=== PATIENT | female | born 1955 | race African-American/Black ===

== ENCOUNTER 2019-08-15 07:12 | Outpatient (CLI) | payer MEDICAID, OTHER ==
[2019-08-15 12:07] LABS: BASOPHILS % (AUTO) 0.5 %; EOSINOPHILS # (AUTO) 0.1 10^3/uL (0.0-0.7); EOSINOPHILS % (AUTO) 0.7 %; HGB - HEMOGLOBIN 13.7 g/dL (12.0-16.0); LYMPHOCYTES # (AUTO) 1.8 10^3/uL (1.5-3.5); LYMPHOCYTES % (AUTO) 24.1 %; MEAN CORPUSCULAR HEMOGLOBIN 28.7 pg (27.0-31.0); MEAN CORPUSCULAR HGB CONC 34.2 g/dL (32.0-36.0); MEAN CORPUSCULAR VOLUME 84.1 fL (81.0-99.0); MEAN PLATELET VOLUME 13.7 fL (7.9-10.8); MONOCYTES # (AUTO) 0.5 10^3/uL (0.0-1.0); MONOCYTES % (AUTO) 6.3 %; PLT - PLATELET COUNT 209 10^3/uL (130-450); RED BLOOD COUNT 4.77 10^6/uL (4.20-5.40); RED CELL DISTRIBUTION WIDTH 14.4 % (12.0-15.0); WHITE BLOOD COUNT 7.3 x10^3/uL (4.8-10.8)
[2019-08-15 12:33] LABS: ALBUMIN 4.1 g/dL (3.2-5.5); ALBUMIN/GLOBULIN RATIO 1.1 (1.0-2.2); ALKALINE PHOSPHATASE 91 IU/L (42-121); ALT ALANINE AMINOTRANSFERASE 25 IU/L (10-60); AST ASPARTATE AMINOTRANSFERASE 18 IU/L (10-42); BILIRUBIN,TOTAL 0.6 mg/dL (0.2-1.0); BUN - BLOOD UREA NITROGEN 14 mg/dL (6-20); CARBON DIOXIDE - CO2 26 mmol/L (21-32); CHLORIDE 94 mmol/L (101-111); CHOL/HDL RATIO 6.6 (<4.4); CHOLESTEROL 262 mg/dL; HDL CHOLESTEROL 40 mg/dL; LDL CHOLESTEROL,CALCULATED 147 mg/dL; LDL/HDL RATIO 3.7 (<4.4); SODIUM 130 mmol/L (135-145); TOTAL PROTEIN 7.8 g/dL (6.7-8.2); VLDL CHOLESTEROL 75 mg/dL
[2019-08-15 12:50] LABS: GLUCOSE 526 mg/dL (70-100)
== END 2019-08-15 07:13 | disposition home or self-care (01) ==
LOC: LAB.WCP 07:12
PROVIDERS: ATTEND Physician Assistant Medical
DX: Z00.00 Encounter for general adult medical examination without abnormal findings (principal)
CPT/HCPCS: 36415; 80053; 80061; 83721; 84443; 85025

== ENCOUNTER 2019-08-15 17:38 | Emergency (ER) | payer MEDICAID, OTHER ==
--- NOTE | 2019-08-15 17:55 | ED Physician Documentation ---
PD HPI SYNCOPE - Stated complaint Stated Complaint: ABNORMAL LABS - Chief complaint Chief Complaint: General - History obtained from History obtained from: Patient - History of Present Illness Timing - onset: How many weeks ago (patient feeling lightheaded, weak, blurred vision, tired, thirsty for few weeks. Seen by PCP yesterday with labs drawn this morning. Found to have blood sugar of 525. Referred to ER for further evaluation. Denies nausea nor vomiting.) Preceding symptoms: Light headed, Generalized weakness. No: Chest pain, Abdominal pain, Nausea / vomiting Associated symptoms: Vision changes (blurred). No: Headache Contributing factors: No: Recent med change, Decreased PO intake Injury occurred: No: Fell Similar symptoms before: Has not had sx before Recently seen: Clinic (yesterday, with labs drawn this morning.) Review of Systems Constitutional: reports: Myalgias, Fatigue. denies: Fever, Chills, Weight Loss Nose: denies: Rhinorrhea / runny nose, Congestion Throat: denies: Sore throat Cardiac: denies: Chest pain / pressure, Palpitations, Pedal edema Respiratory: denies: Cough GI: reports: Nausea (at times). denies: Abdominal Pain, Vomiting, Diarrhea : reports: Frequency. denies: Dysuria Neurologic: reports: Generalized weakness. denies: Focal weakness, Numbness, Near syncope Psychiatric: denies: Anxiety Endocrine: reports: Polydypsia, Polyuria. 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 - Present Medications Home Medications: Ambulatory Orders Medication Instructions Recorded Confirmed Blood Sugar Diagnostic [Glucometer 1 each MC BID #100 strip 08/15/19 Strips] Blood-Glucose Meter [Glucometer] 1 each BID #1 each 08/15/19 Metformin HCl 850 mg PO BID #60 tablet 08/15/19 - Allergies Allergies/Adverse Reactions: Allergies Allergy/AdvReac Type Severity Reaction Status Date / Time amoxicillin Allergy Unknown Verified 08/15/19 17:47 - Social History Does the pt smoke?: Yes Smoking Status: Current every day smoker Does the pt drink ETOH?: Yes Does the pt have substance abuse?: No - POLST Patient has POLST: No PD ED PE NORMAL - Vitals Vital signs reviewed: Yes - General General: Alert and oriented X 3, No acute distress, Well developed/nourished - HEENT HEENT: Ears normal, Pharynx benign. No: Moist mucous membranes - Neck Neck: Supple, no meningeal sign, No adenopathy - Cardiac Cardiac: RRR, No murmur - Respiratory Respiratory: Clear bilaterally - Abdomen Abdomen: Normal bowel sounds, Soft, Non tender - Derm Derm: Normal color, Warm and dry - Extremities Extremities: No tenderness to palpate, Normal ROM s pain, No edema, No calf tenderness / cord - Neuro Neuro: Alert and oriented X 3, No motor deficit, Normal speech Results - Vitals Vitals: Vital Signs - 24 hr 08/15/19 08/15/19 08/15/19 17:47 18:34 20:00 Temperature 36.8 C Heart Rate 85 71 117 H Respiratory 16 16 18 Rate Blood Pressure 129/55 L 140/59 H 124/84 H O2 Saturation 98 96 100 Oxygen O2 Source Room air - Labs Labs: Laboratory Tests 08/15/19 08/15/19 08/15/19 18:28 18:28 18:28 VBG pH 7.395 VBG pCO2 39.6 L VBG pO2 56.9 H VBG HCO3 23.7 VBG Total CO2 24.9 VBG O2 Saturation 90.7 H VBG Base Excess -1.0 Sodium 130 L Potassium 4.1 Chloride 96 L Carbon Dioxide 23 Anion Gap 11.0 BUN 15 Creatinine 1.0 Estimated GFR (MDRD) 68 L Glucose 501 H* POC Whole Bld Glucose Glycated Hemoglobin 12.3 H Estim Average Glucose 306 H Calcium 9.7 Magnesium 2.0 Total Bilirubin 0.7 AST 17 ALT 23 Alkaline Phosphatase 89 Total Protein 7.5 Albumin 3.7 Globulin 3.8 Albumin/Globulin Ratio 1.0 Lipase 51 Serum Ketones SMALL H 08/15/19 19:19 VBG pH VBG pCO2 VBG pO2 VBG HCO3 VBG Total CO2 VBG O2 Saturation VBG Base Excess Sodium Potassium Chloride Carbon Dioxide Anion Gap BUN Creatinine Estimated GFR (MDRD) Glucose POC Whole Bld Glucose 398 H Glycated Hemoglobin Estim Average Glucose Calcium Magnesium Total Bilirubin AST ALT Alkaline Phosphatase Total Protein Albumin Globulin Albumin/Globulin Ratio Lipase Serum Ketones PD MEDICAL DECISION MAKING - ED course Complexity details: considered differential (given IV fluids and insulin, with blood sugar down into 300s. She has likely been in 200-300s range awhile, given her A1C level. Small ketones on serum but not acidotic. She is not vomiting and appears well otherwise. Discussed with Hospitalist, as not likely meets admission criteria, but checked.), d/w patient Departure - Departure Disposition: 01 Home, Self Care Clinical Impression: Diabetes mellitus, new onset, Hyperglycemia Condition: Stable Record reviewed to determine appropriate education?: Yes Instructions: ED Diabetes General Info, ED Hyperglycemia New Susp Diabetes Follow-Up: KVNG SINGH, MSN, [employer] [Primary Care Provider] - Prescriptions: Blood-Glucose Meter [Glucometer] 1 each MC BID #1 each Blood Sugar Diagnostic [Glucometer Strips] 1 each MC BID #100 strip Metformin HCl 850 mg PO BID #60 tablet Comments: Start the metformin once daily for 3 days or so and then increase to twice daily. Low sugar diet and refer to the handout. I wrote a prescription for glucometer and test strips as well and you want to pick that up so you can bring it to your primary care for education about its use. Follow-up with your primary care in the next couple of days for further treatment and the diabetic education process. They may or may not want to start a long-acting daily insulin at a very low dose as well. Discussed this with your primary care. Discharge Date/Time: 08/15/19 20:15
[2019-08-15] MEDS ORDERED: SODIUM CHLORIDE 0.9% 1,000 ML IV STA ×2 (18:25→19:14)
[2019-08-15] MEDS ORDERED: INSULIN REGULAR HUMAN 100 UNIT/1 ML 10 ML MDV IVP STA (18:26)
[2019-08-15 18:44] LABS: VBG PCO2 39.6 mmHg (41-51); VBG PH 7.395 (7.31-7.41); VBG PO2 56.9 mmHg (25-47); VBG TOTAL CO2 24.9 mmol/L (24-29)
[2019-08-15 18:52] LABS: KETONES, SERUM (ACETEST) SMALL (NEGATIVE)
[2019-08-15 18:57] LABS: HB2 TOTAL 13.7 g/dL; HEMOGLOBIN A1C 1.52 g/dL; HEMOGLOBIN A1C % 12.3 % (4.6-6.2)
[2019-08-15 18:58] LABS: ALBUMIN 3.7 g/dL (3.2-5.5); ALKALINE PHOSPHATASE 89 IU/L (42-121); ALT ALANINE AMINOTRANSFERASE 23 IU/L (10-60); AST ASPARTATE AMINOTRANSFERASE 17 IU/L (10-42); BILIRUBIN,TOTAL 0.7 mg/dL (0.2-1.0); BUN - BLOOD UREA NITROGEN 15 mg/dL (6-20); CALCIUM 9.7 mg/dL (8.5-10.3); CARBON DIOXIDE - CO2 23 mmol/L (21-32); CHLORIDE 96 mmol/L (101-111); LIPASE 51 U/L (22-51); SODIUM 130 mmol/L (135-145); TOTAL PROTEIN 7.5 g/dL (6.7-8.2)
[2019-08-15 19:00] LABS: GLUCOSE 501 mg/dL (70-100)
[2019-08-15] MEDS ORDERED: metFORMIN 500 MG TABLET PO STA (19:29)
[2019-08-15 20:13] VITALS: BP 124/84
== END 2019-08-15 20:15 | disposition home or self-care (01) ==
LOC: ED 17:38
DX: E11.65 Type 2 diabetes mellitus with hyperglycemia (principal); F17.200 Nicotine dependence, unspecified, uncomplicated
CPT/HCPCS: 36415; 80053; 82009; 82803; 83036; 83690; 83735; 96360; 96361; 99283; 99284; A9270; J1815

== ENCOUNTER 2019-09-19 13:54 | Outpatient (CLI) | payer MEDICAID ==
--- NOTE | 2019-09-19 18:17 | CT Report ---
PROCEDURE: Low Dose Lung Cancer Screen INDICATIONS: NICOTINE DEPENDENCE TECHNIQUE: Noncontrast low-dose 5 mm thick sections acquired from the pulmonary apices to the posterior costophr enic angles. 7 mm thick coronal and sagittal MIP reformats were then acquired. For radiation dose r eduction, the following was used: automated exposure control, adjustment of mA and/or kV according t o patient size. COMPARISON: None. FINDINGS: Image quality: Excellent. Lungs and pleura: 3 mm nodule noted in the right upper lobe (series 4, image 86) series. 4 mm right middle lobe nodule (series 4, image 131). 3 mm right lower lobe nodule (series 4, image 142). 3 mm ri ght middle lobe nodule (series 4, image 146). 7 mm subpleural right lower lobe nodule (series 4, imag e 153 Mediastinum: Heart size is normal. No pericardial effusion. No mediastinal adenopathy by size crit eria. Thoracic aorta and central pulmonary arteries are normal in size. Esophagus is normal in j[place]e [place]. No hiatal hernia. Bones and chest wall: No suspicious bony lesions. No vertebral body compression fractures. No axil yvon or supraclavicular adenopathy by size criteria. The thyroid is normal in size. Abdomen: Visualized upper abdomen solid organs and bowel loops appear normal in the absence of contr ast. IMPRESSION: Multiple nodules in the right lung ranging in size from 3-7 mm. Nodules are probably benign (Lung-RAD S 3). Recommend follow-up CT scan in 6 months. Reviewed by: Patricia Chino MD, PhD on 09/19/2019 6:15 PM PDT Approved by: Patricia Chino MD, PhD on 09/19/2019 6:15 PM PDT Station ID: [id number]
== END 2019-09-19 13:55 | disposition home or self-care (01) ==
LOC: DI 13:54
PROVIDERS: ATTEND Nurse Practitioner Family
DX: Z12.2 Encounter for screening for malignant neoplasm of respiratory organs (principal); F17.210 Nicotine dependence, cigarettes, uncomplicated; R91.8 Other nonspecific abnormal finding of lung field; M85.89 Other specified disorders of bone density and structure, multiple sites; Z78.0 Asymptomatic menopausal state
CPT/HCPCS: 77080; G0297

== ENCOUNTER 2019-11-15 09:12 | Outpatient (CLI) | payer MEDICAID ==
[2019-11-15 12:11] LABS: ALBUMIN/GLOBULIN RATIO 1.1 (1.0-2.2); ALKALINE PHOSPHATASE 52 IU/L (42-121); ALT ALANINE AMINOTRANSFERASE 16 IU/L (10-60); AST ASPARTATE AMINOTRANSFERASE 17 IU/L (10-42); BILIRUBIN,TOTAL 0.4 mg/dL (0.2-1.0); BUN - BLOOD UREA NITROGEN 9 mg/dL (6-20); CARBON DIOXIDE - CO2 30 mmol/L (21-32); CHLORIDE 105 mmol/L (101-111); CHOL/HDL RATIO 4.9 (<4.4); CHOLESTEROL 226 mg/dL; CREATININE 0.8 mg/dL (0.4-1.0); GLUCOSE 98 mg/dL (70-100); HDL CHOLESTEROL 46 mg/dL; LDL CHOLESTEROL,CALCULATED 163 mg/dL; LDL/HDL RATIO 3.5 (<4.4); SODIUM 141 mmol/L (135-145); TOTAL PROTEIN 7.7 g/dL (6.7-8.2); VLDL CHOLESTEROL 17 mg/dL
[2019-11-15 12:42] LABS: HEMOGLOBIN A1c% 6.5 % (4.27-6.07)
== END 2019-11-15 23:59 | disposition home or self-care (01) ==
LOC: LAB.WCP 09:12
PROVIDERS: ATTEND Nurse Practitioner Family
DX: E11.9 Type 2 diabetes mellitus without complications (principal); E78.5 Hyperlipidemia, unspecified
CPT/HCPCS: 36415; 80053; 80061; 83036; 83721

== ENCOUNTER 2019-11-16 06:27 | Day surgery (SDC) | payer MEDICAID ==
[2019-11-16] MEDS ORDERED: LACTATED RINGERS 1,000 ML IV ONE (06:58)
[2019-11-16] MEDS ORDERED: MIDAZOLAM 2 MG/2 ML VIAL IVP ONE (08:11)
[2019-11-16] MEDS ORDERED: fentaNYL 250 MCG/5 ML VIAL IVP ONE (08:11)
[2019-11-16] MEDS ORDERED: LACTATED RINGERS 700 ML IV ONE (08:59)
[2019-11-16 09:25] VITALS: BP 126/47
== END 2019-11-16 06:28 | disposition home or self-care (01) ==
LOC: SDS 06:27
PROVIDERS: ATTEND Surgery
PROC: 0DBH8ZX Excision of Cecum, Via Natural or Artificial Opening Endoscopic, Diagnostic (ICD-10-PCS; principal; 2019-11-16 07:30)
DX: Z12.11 Encounter for screening for malignant neoplasm of colon (principal); K63.89 Other specified diseases of intestine; K64.8 Other hemorrhoids; K64.4 Residual hemorrhoidal skin tags; E11.9 Type 2 diabetes mellitus without complications; F17.210 Nicotine dependence, cigarettes, uncomplicated; Z79.84 Long term (current) use of oral hypoglycemic drugs; J44.9 Chronic obstructive pulmonary disease, unspecified
CPT/HCPCS: 45380; J3010; J7120

== ENCOUNTER 2019-12-22 13:24 | Outpatient (CLI) | payer MEDICAID ==
[2019-12-22] MEDS ORDERED: BUFFERED LIDOCAINE 10 ML SYRINGE ONE (14:04)
[2019-12-22] MEDS ORDERED: BUFFERED LIDOCAINE 10 ML SYRINGE IU ONE (15:34)
--- NOTE | 2019-12-23 07:12 | Ultrasound Report ---
PROCEDURE: FNA Bx w/US Gdn Ea Addl INDICATIONS: NODULE #4 LEFT THYROID TECHNIQUE: The indications, alternatives, benefits, risks, and complications of the procedure were explained to the patient. Written informed consent was obtained and placed in the chart. The area of interest wa s examined sonographically and a site was chosen for ultrasound guided percutaneous sampling. The sk in was prepared and draped in the usual fashion, and anesthetized with 1% lidocaine infiltrated from the skin down to the lesion. Multiple passes were then performed, with [facility]. A bandage was applied to the area of access at completion of t he study. COMPARISON: Prior thyroid ultrasound 11/22/2019. FINDINGS: During scanning over the thyroid gland today definite nodules at the lower third of each t hyroid lobe were not identified. These would be the areas of reported prior suspected thyroid nodules 3. #5 from the prior report. The thyroid nodule #4 couldn't be located and was biopsied. Location(s) of lesion(s) sampled: #4, superior lateral aspect of the left thyroid lobe. [place]: 25 gauge hypodermic needles. Number of passes: 5. Each fine-needle aspiration was placed in cytology fluid for transport to the [facility] for cytologic analysis. Medications: 1% lidocaine for local anaesthesia. Complications: None. IMPRESSION: Successful ultrasound-guided left upper lateral thyroid nodule fine needle aspiration, with cytology results pending. As discussed above definite nodules could not be located within the lower third of the right and left thyroid lobe and therefore no cytology aspiration was performed in those 2 areas. The thyroid gland is mildly lobulated along its contours, but discrete thyroid nodules other than at the upper outer le ft thyroid lobe could not be definitively seen. Reviewed by: Alvarado Blackwell MD on 12/22/2019 5:04 PM PDT Approved by: Alvarado Blackwell MD on 12/22/2019 5:04 PM PDT Station ID: [id number]
== END 2019-12-22 13:25 | disposition home or self-care (01) ==
LOC: DI 13:24
PROVIDERS: ATTEND Surgery
DX: E04.2 Nontoxic multinodular goiter (principal)
CPT/HCPCS: 10006

== ENCOUNTER 2020-02-27 11:02 | Outpatient (CLI) | payer MEDICAID ==
[2020-02-27 19:32] LABS: ALBUMIN 3.9 g/dL (3.2-5.5); ALBUMIN/GLOBULIN RATIO 1.1 (1.0-2.2); BILIRUBIN,TOTAL 0.2 mg/dL (0.2-1.0); CALCIUM 9.6 mg/dL (8.5-10.3); CREATININE 0.7 mg/dL (0.4-1.0); TOTAL PROTEIN 7.5 g/dL (6.7-8.2)
== END 2020-02-27 23:59 | disposition home or self-care (01) ==
LOC: LAB.WCP 11:02
PROVIDERS: ATTEND Nurse Practitioner Family
DX: E11.9 Type 2 diabetes mellitus without complications (principal)
CPT/HCPCS: 36415; 80053; 83036

== ENCOUNTER 2020-07-16 12:58 | Outpatient (CLI) | payer MEDICAID ==
--- NOTE | 2020-07-18 07:04 | Mammography Report ---
BILATERAL DIGITAL SCREENING MAMMOGRAM 3D/2D: 07/16/2020 CLINICAL: Routine screening. Comparison: 01/17/2013 There are scattered fibroglandular elements in both breasts. No significant masses, calcifications, or other findings are seen in either breast. IMPRESSION: NEGATIVE There is no mammographic evidence of malignancy. A 1 year screening mammogram is recommended. This exam was interpreted at Station ID: [id number]. NOTE: For mammograms, a report in lay terms will be sent to the patient. Approximately 15% of breast malignancies will not be visualized mammographically. In the management of a palpable breast mass, a negative mammogram must not discourage biopsy of a clinically suspicious lesion. Electronically Signed By: Bryson Fuentes M.D. aty/:07/16/2020 14:26:25 ACR BI-RADS Category 1: Negative 3341F PARENCHYMAL PATTERN: (A) - The breast(s) demonstrate(s) scattered fibroglandular densities. BI-RADS CATEGORY: (1) - 1 RECOMMENDATION: (ANNUAL) - Recommend routine annual screening mammography. [id number] 1 year screening LATERALITY: (B)
== END 2020-07-16 12:59 | disposition home or self-care (01) ==
LOC: DI 12:58
DX: Z12.31 Encounter for screening mammogram for malignant neoplasm of breast (principal)

== ENCOUNTER 2020-08-16 08:00 | Outpatient (CLI) | payer MEDICAID ==
[2020-08-16 18:07] LABS: BASOPHILS # (AUTO) 0.1 10^3/uL (0.0-0.1); BASOPHILS % (AUTO) 0.7 %; EOSINOPHILS # (AUTO) 0.1 10^3/uL (0.0-0.7); EOSINOPHILS % (AUTO) 1.8 %; HCT - HEMATOCRIT 32.7 % (37.0-47.0); HGB - HEMOGLOBIN 10.3 g/dL (12.0-16.0); LYMPHOCYTES # (AUTO) 1.9 10^3/uL (1.5-3.5); LYMPHOCYTES % (AUTO) 25.4 %; MEAN CORPUSCULAR HEMOGLOBIN 25.5 pg (27.0-31.0); MEAN CORPUSCULAR HGB CONC 31.5 g/dL (32.0-36.0); MEAN CORPUSCULAR VOLUME 80.9 fL (81.0-99.0); MEAN PLATELET VOLUME 12.3 fL (7.9-10.8); MONOCYTES # (AUTO) 0.5 10^3/uL (0.0-1.0); MONOCYTES % (AUTO) 7.4 %; NEUTROPHILS # (AUTO) 4.7 10^3/uL (1.5-6.6); NEUTROPHILS % (AUTO) 64.4 %; PLT - PLATELET COUNT 299 10^3/uL (130-450); RED BLOOD COUNT 4.04 10^6/uL (4.20-5.40); RED CELL DISTRIBUTION WIDTH 16.8 % (12.0-15.0); WHITE BLOOD COUNT 7.3 x10^3/uL (4.8-10.8)
[2020-08-16 18:39] LABS: ALBUMIN 3.9 g/dL (3.2-5.5); ALBUMIN/GLOBULIN RATIO 1.1 (1.0-2.2); ALKALINE PHOSPHATASE 52 IU/L (42-121); ALT ALANINE AMINOTRANSFERASE 14 IU/L (10-60); AST ASPARTATE AMINOTRANSFERASE 17 IU/L (10-42); BILIRUBIN,TOTAL 0.2 mg/dL (0.2-1.0); BUN - BLOOD UREA NITROGEN 10 mg/dL (6-20); CALCIUM 10.2 mg/dL (8.5-10.3); CARBON DIOXIDE - CO2 25 mmol/L (21-32); CHLORIDE 107 mmol/L (101-111); CHOL/HDL RATIO 5.7 (<4.4); CHOLESTEROL 243 mg/dL; CREATININE 0.8 mg/dL (0.4-1.0); GFR - MDRD 88 (>89); GLUCOSE 100 mg/dL (70-100); HDL CHOLESTEROL 43 mg/dL; LDL CHOLESTEROL,CALCULATED 164 mg/dL; LDL/HDL RATIO 3.8 (<4.4); POTASSIUM 4.1 mmol/L (3.5-5.0); SODIUM 140 mmol/L (135-145); TOTAL PROTEIN 7.4 g/dL (6.7-8.2); TRIGLYCERIDES 180 mg/dL; VLDL CHOLESTEROL 36 mg/dL
[2020-08-16 18:44] LABS: THYROID STIMULATING HORMONE 1.73 uIU/mL (0.34-5.60)
[2020-08-16 20:32] LABS: ESTIMATED AVERAGE GLUCOSE 126 mg/dL (70-100)
== END 2020-08-16 23:59 | disposition home or self-care (01) ==
LOC: LAB.WCP 08:00
PROVIDERS: ATTEND Nurse Practitioner Family
DX: E04.1 Nontoxic single thyroid nodule (principal); E11.9 Type 2 diabetes mellitus without complications; E78.5 Hyperlipidemia, unspecified
CPT/HCPCS: 36415; 80053; 80061; 83036; 83721; 84443; 85025

== ENCOUNTER 2020-09-24 08:00 | Outpatient (CLI) | payer MEDICAID ==
[2020-09-24 13:56] LABS: % IRON SATURATION 5 % (20-50); IRON 27 ug/dL (28-170); TOTAL IRON BINDING CAPACITY 505 ug/dL (250-450); TRANSFERRIN 361 mg/dL (192-382)
== END 2020-09-24 23:59 | disposition home or self-care (01) ==
LOC: LAB.WCP 08:00
PROVIDERS: ATTEND Family Medicine
DX: D50.9 Iron deficiency anemia, unspecified (principal)
CPT/HCPCS: 36415; 82728; 83540; 84466

== ENCOUNTER 2020-10-03 15:13 | Outpatient (CLI) | payer MEDICAID ==
--- NOTE | 2020-10-03 17:12 | CT Report ---
PROCEDURE: CHEST WO INDICATIONS: LUNG NODULE TECHNIQUE: Noncontrast images were acquired from the pulmonary apices to the posterior costophrenic angles. Mul tiplanar MIP reformats were then acquired. For radiation dose reduction, the following was used: au tomated exposure control, adjustment of mA and/or kV according to patient size. COMPARISON: Low-dose chest CT, 09/19/2019 FINDINGS: Image quality: Excellent. Lungs and pleura: Several pulmonary nodules are again seen: Series 4 image 90, right upper lobe, 3 mm, stable Series 4 image 137, anterior right middle lobe superiorly, 4 mm, stable Series 4 image 145, right lower lobe 4 mm, stable Series 4 image 154, right lower lobe subpleural posteriorly, 7 mm, stable No acute air space opacities. No pleural effusions or pneumothorax. Central and peripheral airways are patent and normal in caliber. Mediastinum: Heart size is normal. No pericardial effusion. No mediastinal adenopathy by size crit eria. Thoracic aorta and central pulmonary arteries are normal in size. Esophagus is normal in [place]e [place]. No hiatal hernia. Bones and chest wall: No suspicious bony lesions. Age-appropriate degenerative changes are seen. N o vertebral body compression fractures. No axillary or supraclavicular adenopathy by size criteria. The thyroid demonstrates generalized prominence, particularly involving the thyroid isthmus, which i s thickened to 2.3 cm. Abdomen: Visualized upper abdominal solid organs and bowel loops appear normal in the absence of con trast. IMPRESSION: Stable bilateral pulmonary nodules are seen. Recommend annual low-dose CT chest screening examinations, as long as the patient meets the published screening criteria. Prominent thyroid, particularly involving the thyroid isthmus. No discrete nodules are seen. If clini luciana appropriate, please consider a follow-up thyroid ultrasound for further evaluation. Reviewed by: Rafita Jose MD on 10/03/2020 4:11 PM DENISE Approved by: Rafita Jose MD on 10/03/2020 4:11 PM DENISE Station ID: [id number]
== END 2020-10-03 15:14 | disposition home or self-care (01) ==
LOC: DI 15:13
PROVIDERS: ATTEND Family Medicine
DX: R91.8 Other nonspecific abnormal finding of lung field (principal)

== ENCOUNTER 2020-10-12 12:41 | Outpatient (CLI) | payer MEDICAID ==
--- NOTE | 2020-10-12 17:42 | Ultrasound Report ---
PROCEDURE: Head or Neck Soft Tissue INDICATIONS: MULTIPLE THYROID NODULES TECHNIQUE: Real-time scanning was performed of the thyroid gland, with image documentation. COMPARISON: 11/22/2019 FINDINGS: Right: Thyroid lobe measures 6.8 x 2.3 x 2.3 cm, and is homogeneous in echotexture. Left: Thyroid lobe measures 5.9 x 1.8 x 2.4 cm, and is homogenous in echotexture. Isthmus: 8 mm thick. Nodule number: 1 Location: Right inferior thyroid Size: 1.6 x 1.4 x 1.3 cm, prior 2.2 x 1.2 x 1.8 cm. Composition: Solid Echogenicity: Isoechoic Shape: wider than tall. Margins: Smooth Echogenic foci: None Total points: 3 ACR TI-RADS category: 3 Nodule number: 2 Location: Left superior thyroid Size: 1.6 x 0.6 x 1 cm, prior 1.5 x 0.8 x 1 cm. Composition: Spongiform Echogenicity: Hypoechoic Shape: wider than tall. Margins: Smooth Echogenic foci: None Total points: 3 ACR TI-RADS category: 3 The previously seen nodule at the inferior pole of the left thyroid is not well seen on the current s tudy. IMPRESSION: Bilateral thyroid nodules are seen. By published criteria, no specific imaging follow-up is recommended. ACR TI-RADS definitions and recommendations: TI-RADS 1 (benign): 0 points. FNA not needed. TI-RADS 2 (not suspicious): 2 points. FNA not needed. TI-RADS 3 (mildly suspicious): 3 points. ? FNA if 2.5 cm or larger, follow up if 1.5 cm or larger (at 1, 3, and 5 years). TI-RADS 4 (moderately suspicious): 4-6 points. ? FNA if 1.5 cm or larger, follow up if 1 cm or larger (at 1, 2, 3, and 5 years). TI-RADS 5 (highly suspicious): 7 points or more. ? FNA if 1 cm or larger, follow up if 0.5 cm or larger (every year for 5 years). Reviewed by: Rafita Jose MD on 10/12/2020 4:40 PM DENISE Approved by: Rafita Jose MD on 10/12/2020 4:40 PM AKHARJIT Station ID: [id number]
== END 2020-10-12 12:42 | disposition home or self-care (01) ==
LOC: DI 12:41
PROVIDERS: ATTEND Family Medicine
DX: E04.2 Nontoxic multinodular goiter (principal)

== ENCOUNTER 2020-11-28 10:56 | Outpatient (CLI) | payer MEDICAID ==
[2020-11-28 18:03] LABS: BASOPHILS # (AUTO) 0.1 10^3/uL (0.0-0.1); BASOPHILS % (AUTO) 0.8 %; EOSINOPHILS # (AUTO) 0.1 10^3/uL (0.0-0.7); EOSINOPHILS % (AUTO) 1.9 %; HCT - HEMATOCRIT 37.7 % (37.0-47.0); HGB - HEMOGLOBIN 11.7 g/dL (12.0-16.0); LYMPHOCYTES # (AUTO) 1.9 10^3/uL (1.5-3.5); LYMPHOCYTES % (AUTO) 29.3 %; MEAN CORPUSCULAR HEMOGLOBIN 25.8 pg (27.0-31.0); MEAN CORPUSCULAR VOLUME 83.2 fL (81.0-99.0); MEAN PLATELET VOLUME 12.2 fL (7.9-10.8); MONOCYTES # (AUTO) 0.5 10^3/uL (0.0-1.0); MONOCYTES % (AUTO) 7.5 %; NEUTROPHILS # (AUTO) 3.8 10^3/uL (1.5-6.6); PLT - PLATELET COUNT 258 10^3/uL (130-450); RED BLOOD COUNT 4.53 10^6/uL (4.20-5.40); RED CELL DISTRIBUTION WIDTH 21.7 % (12.0-15.0); WHITE BLOOD COUNT 6.4 x10^3/uL (4.8-10.8)
[2020-11-28 18:16] LABS: MICROALBUM/CREATININE RATIO,UR 55.4 ug/mg (<30.0); MICROALBUMIN,URINE 3.1 mg/dL (0-300.0)
[2020-11-28 18:30] LABS: % IRON SATURATION 10 % (20-50); IRON 46 ug/dL (28-170); TOTAL IRON BINDING CAPACITY 452 ug/dL (250-450); TRANSFERRIN 323 mg/dL (192-382)
[2020-11-28 19:03] LABS: SLIDE REVIEW? Indicated
[2020-11-28 19:05] LABS: PLATELET MORPHOLOGY NORMAL APPEARANCE (NORMAL)
[2020-11-28 20:26] LABS: ESTIMATED AVERAGE GLUCOSE 114 mg/dL (70-100); HEMOGLOBIN A1c% 5.6 % (4.27-6.07)
== END 2020-11-28 23:59 | disposition home or self-care (01) ==
LOC: LAB.WCP 10:56
PROVIDERS: ATTEND Nurse Practitioner
DX: E11.9 Type 2 diabetes mellitus without complications (principal); D50.9 Iron deficiency anemia, unspecified
CPT/HCPCS: 36415; 82043; 82570; 82728; 83036; 83540; 84466; 85025

== ENCOUNTER 2021-04-29 07:17 | Day surgery (SDC) | payer MEDICAID ==
[2021-04-29] MEDS ORDERED: LACTATED RINGERS 1,000 ML IV ONE (07:21)
--- NOTE | 2021-04-29 08:27 | ANESTHESIA ---
Pre-Anesthesia VS, & Labs - Diagnosis anemia - Procedure EGD, Colonoscopy Vital Signs: Temp Pulse Resp BP Pulse Ox 36.4 C L 62 16 132/65 H 98 04/29/21 07:25 04/29/21 07:25 04/29/21 07:25 04/29/21 07:25 04/29/21 07:25 Height: 5 ft 2 in Weight (kg): 64 kg Body Mass Index: 25.8 BMI Classification: Overweight - NPO >8 hours - Is Patient ?: No - Lab Results Current Lab Results: Laboratory Tests 04/29/21 07:48: POC Whole Bld Glucose 114 H Home Medications and Allergies Home Medications: Ambulatory Orders Metformin HCl 850 mg PO PRN PRN 04/21/21 Atorvastatin Calcium 10 mg PO DAILY 11/15/19 Glipizide [Glipizide ER] 5 mg PO PRN PRN 11/15/19 Albuterol Sulf [Ventolin Hfa Inhaler] 2 puffs INH PRN PRN 11/16/19 Metformin HCl 850 mg PO PRN PRN 04/21/21 Allergies/Adverse Reactions: Allergies Allergy/AdvReac Type Severity Reaction Status Date / Time amoxicillin Allergy Unknown Verified 08/15/19 17:47 Anes History & Medical History - Anesthetic History Anesthesia Complications: reports: No previous complications - Medical History Cardiovascular: reports: High cholesterol, Murmur (2/6 murmur) Pulmonary: reports: COPD Gastrointestinal: reports: None Urinary: reports: None Neuro: reports: None Musculoskeletal: reports: Osteoarthritis, Chronic back pain Endocrine/Autoimmune: reports: Type 2 diabetes Blood Disorders: reports: None Skin: reports: None Smoking Status: Current every day smoker History of Cancer?: No - Surgical History General: reports: Colonoscopy Gynecologic: reports: Hysterectomy Plan Anesthesia Type: Total IV Consent for Procedure(s) Verified and Reviewed: Yes Code Status: Attempt Resuscitation ASA classification: 2-Mild systemic disease Is this case an emergency?: No
[2021-04-29] MEDS ORDERED: PROPOFOL 500 MG/50 ML 500 MG/50 ML VIAL ONE (09:08)
[2021-04-29] MEDS ORDERED: LIDOCAINE-MPF 2% 5 ML VIAL ONE (09:18)
[2021-04-29] MEDS ORDERED: LACTATED RINGERS 200 ML IV ONE (09:55)
--- NOTE | 2021-04-29 11:07 | ANESTHESIA POST OP EVALUATION ---
Anesthesia Post Eval - Post Anesthesia Eval Vitals: Last Vital Signs Temp 36.4 C L 04/29/21 10:09 Pulse 54 L 04/29/21 10:09 Resp 16 04/29/21 10:09 BP 130/50 L 04/29/21 10:09 Pulse Ox 100 04/29/21 10:09 CV Function Including HR & BP: Stable Pain Control: Satisfactory Nausea & Vomiting: Negative Mental Status: Baseline Respiratory Status: Airway Patent Hydration Status: Satisfactory Anesthesia Complications: None
[2021-04-29 11:09] VITALS: BP 133/62
== END 2021-04-29 07:18 | disposition home or self-care (01) ==
LOC: SDS 07:17
PROVIDERS: ATTEND Surgery
PROC: 0DB58ZX Excision of Esophagus, Via Natural or Artificial Opening Endoscopic, Diagnostic (ICD-10-PCS; 2021-04-29)
PROC: 0DB48ZX Excision of Esophagogastric Junction, Via Natural or Artificial Opening Endoscopic, Diagnostic (ICD-10-PCS; 2021-04-29)
PROC: 0DBK8ZZ Excision of Ascending Colon, Via Natural or Artificial Opening Endoscopic (ICD-10-PCS; 2021-04-29)
PROC: 0DB98ZX Excision of Duodenum, Via Natural or Artificial Opening Endoscopic, Diagnostic (ICD-10-PCS; principal; 2021-04-29 08:30)
PROC: 0DB68ZX Excision of Stomach, Via Natural or Artificial Opening Endoscopic, Diagnostic (ICD-10-PCS; 2021-04-29 08:30)
DX: D50.9 Iron deficiency anemia, unspecified (principal); D12.2 Benign neoplasm of ascending colon; K57.30 Diverticulosis of large intestine without perforation or abscess without bleeding; K64.8 Other hemorrhoids; K64.4 Residual hemorrhoidal skin tags; K25.9 Gastric ulcer, unspecified as acute or chronic, without hemorrhage or perforation; J44.9 Chronic obstructive pulmonary disease, unspecified; R91.8 Other nonspecific abnormal finding of lung field; Z80.0 Family history of malignant neoplasm of digestive organs; F17.200 Nicotine dependence, unspecified, uncomplicated; K29.50 Unspecified chronic gastritis without bleeding; E11.9 Type 2 diabetes mellitus without complications
CPT/HCPCS: 43239; 45380; J7120

== ENCOUNTER 2021-12-08 13:17 | Outpatient (CLI) | payer MEDICAID ==
[2021-12-08 17:48] LABS: BASOPHILS % (AUTO) 0.6 %; EOSINOPHILS # (AUTO) 0.1 10^3/uL (0.0-0.7); HGB - HEMOGLOBIN 13.1 g/dL (12.0-16.0); LYMPHOCYTES # (AUTO) 1.8 10^3/uL (1.5-3.5); LYMPHOCYTES % (AUTO) 36.2 %; MEAN CORPUSCULAR HGB CONC 32.8 g/dL (32.0-36.0); MEAN CORPUSCULAR VOLUME 91.5 fL (81.0-99.0); MEAN PLATELET VOLUME 12.4 fL (7.9-10.8); MONOCYTES # (AUTO) 0.3 10^3/uL (0.0-1.0); MONOCYTES % (AUTO) 5.5 %; NEUTROPHILS # (AUTO) 2.8 10^3/uL (1.5-6.6); NEUTROPHILS % (AUTO) 56.5 %; PLT - PLATELET COUNT 190 10^3/uL (130-450); RED BLOOD COUNT 4.37 10^6/uL (4.20-5.40); RED CELL DISTRIBUTION WIDTH 13.7 % (12.0-15.0); WHITE BLOOD COUNT 4.9 x10^3/uL (4.8-10.8)
[2021-12-08 18:07] LABS: % IRON SATURATION 17 % (20-50); ALBUMIN 4.4 g/dL (3.2-5.5); ALBUMIN/GLOBULIN RATIO 1.3 (1.0-2.2); ALKALINE PHOSPHATASE 49 IU/L (42-121); ALT ALANINE AMINOTRANSFERASE 16 IU/L (10-60); AST ASPARTATE AMINOTRANSFERASE 18 IU/L (10-42); BILIRUBIN,TOTAL 0.6 mg/dL (0.2-1.0); BUN - BLOOD UREA NITROGEN 9 mg/dL (6-20); CARBON DIOXIDE - CO2 28 mmol/L (21-32); CHLORIDE 106 mmol/L (101-111); CHOL/HDL RATIO 3.1 (<4.4); CHOLESTEROL 169 mg/dL; CREATININE 0.7 mg/dL (0.4-1.0); GFR - MDRD 102 (>89); GLUCOSE 82 mg/dL (70-100); HDL CHOLESTEROL 55 mg/dL; IRON 74 ug/dL (28-170); LDL CHOLESTEROL,CALCULATED 99 mg/dL; LDL/HDL RATIO 1.8 (<4.4); POTASSIUM 3.8 mmol/L (3.5-5.0); SODIUM 141 mmol/L (135-145); TOTAL IRON BINDING CAPACITY 440 ug/dL (250-450); TOTAL PROTEIN 7.7 g/dL (6.7-8.2); TRANSFERRIN 314 mg/dL (192-382); TRIGLYCERIDES 77 mg/dL; VLDL CHOLESTEROL 15 mg/dL
[2021-12-08 18:16] LABS: THYROID STIMULATING HORMONE 2.04 uIU/mL (0.34-5.60)
[2021-12-08 18:22] LABS: FERRITIN 18.4 ng/mL (11.0-306.8)
[2021-12-08 18:32] LABS: CREATININE,URINE 72.2 mg/dL; MICROALBUM/CREATININE RATIO,UR 159.3 ug/mg (<30.0); MICROALBUMIN,URINE 11.5 mg/dL (0-300.0)
[2021-12-08 21:32] LABS: ESTIMATED AVERAGE GLUCOSE 120 mg/dL (70-100); HEMOGLOBIN A1c% 5.8 % (4.27-6.07)
== END 2021-12-08 13:18 | disposition home or self-care (01) ==
LOC: LAB.N 13:17
PROVIDERS: ATTEND Nurse Practitioner
DX: E11.9 Type 2 diabetes mellitus without complications (principal); G81.90 Hemiplegia, unspecified affecting unspecified side; E78.5 Hyperlipidemia, unspecified; D50.9 Iron deficiency anemia, unspecified
CPT/HCPCS: 36415; 80053; 80061; 82043; 82570; 82728; 83036; 83540; 83721; 84443; 84466; 85025

== ENCOUNTER 2021-12-25 07:55 | Outpatient (CLI) | payer MEDICARE, MEDICAID ==
--- NOTE | 2021-12-25 13:34 | Ultrasound Report ---
PROCEDURE: Carotid Doppler Complete INDICATIONS: RIGHT SIDE WEAKNESS TECHNIQUE: Color and pulse Doppler interrogation was performed of both carotid systems, with image documentation and velocity measurements. COMPARISON: None. FINDINGS: Right side: Brachial blood pressure: 135/61 mm Hg. Common carotid artery peak systolic velocity: 79 cm/sec. Internal carotid artery peak systolic velocity: 128 cm/sec. Internal carotid artery end diastolic velocity: 61 cm/sec. External carotid artery peak systolic velocity: 133 cm/sec. ICA/CCA peak systolic ratio: 1.6 . Lake scale imaging description: Small amount of calcified and noncalcified polypoid plaque at the ca rotid bulb extending into the internal carotid artery. Percent internal carotid artery stenosis: Approximately 50% . Vertebral artery: Flow direction is antegrade. Left side: Brachial blood pressure: 143/60 mm Hg. Common carotid artery peak systolic velocity: 97 cm/sec. Internal carotid artery peak systolic velocity: 117 cm/sec. Internal carotid artery end diastolic velocity: 47 cm/sec. External carotid artery peak systolic velocity: 79 cm/sec. ICA/CCA peak systolic ratio: 1.2 . Lake scale imaging description: Moderate plaque at the left carotid bulb, mainly noncalcified narrow ing the ICA origin. Percent internal carotid artery stenosis: Less than 50% . Vertebral artery: Flow direction is antegrade. IMPRESSION: 1. No hemodynamically significant stenosis in either carotid system. 2. Small to moderate carotid bulb plaque bilaterally. 3. Antegrade vertebral artery flow bilaterally. The estimate of stenosis included in the report of the imaging study was calculated using the NASCET method Reviewed by: Daniela Chavez MD on 12/25/2021 1:32 PM PDT Approved by: Daniela Chavez MD on 12/25/2021 1:32 PM PDT Station ID: [id number]
--- NOTE | 2021-12-25 16:55 | MRI Report ---
PROCEDURE: BRAIN WO INDICATIONS: RIGHT SIDE WEAKNESS TECHNIQUE: Noncontrast axial T1 spin echo, axial T2 fast spin echo, sagittal and axial FLAIR, coronal T2 fast sp in echo, axial gradient echo, axial diffusion and ADC through the brain. COMPARISON: None. FINDINGS: Image quality: Excellent. CSF Spaces: Basal cisterns are patent. No extra-axial fluid collections. Ventricles are normal in size and shape. Brain: No intracranial masses or hemorrhage. Lake/white matter interface is normal. Mild diffuse c erebral volume loss. Minimal degree of patchy high FLAIR signal within the periventricular and subcor tical white matter. Brainstem appears normal. Diffusion-weighted images demonstrate no acute ischemi c insult. No chronic ischemic insults. Normal intravascular flow voids are present. Skull and face: Calvarium has normal marrow signal. Orbits appear normal. Sinuses: Sinuses and mastoids are clear. IMPRESSION: 1. Mild volume loss. Minimal small vessel ischemic disease. 2. No acute process. No recent infarct. Reviewed by: Umair Lucero MD on 12/25/2021 4:54 PM PDT Approved by: Umair Lucero MD on 12/25/2021 4:54 PM PDT Station ID: [id number]
== END 2021-12-25 07:56 | disposition home or self-care (01) ==
LOC: DI 07:55
PROVIDERS: ATTEND Nurse Practitioner
DX: R53.1 Weakness (principal); I67.82 Cerebral ischemia; I65.23 Occlusion and stenosis of bilateral carotid arteries
CPT/HCPCS: 93880

== ENCOUNTER 2022-01-21 08:29 | Outpatient (CLI) | payer MEDICARE, MEDICAID ==
--- NOTE | 2022-01-21 09:44 | DEXA Report ---
PROCEDURE: Dexa Spine and/or Hip INDICATIONS: POST MENOPAUSAL TECHNIQUE: Dual energy x-ray absorptiometry (DXA) was performed on a [employer]. Regions measur ed are the AP Spine, femoral neck, and if needed forearm. COMPARISON: DEXA 09/19/2019. FINDINGS: Lumbar Spine: Bone Mineral Density 1.087 g/cm/cm,T score -0.8, normal Left Hip: Bone Mineral Density 0.880 g/cm/cm, T score -1.0, normal, there is significant interval decrease in bone mineral density. Left Femoral Neck: Bone Mineral Density 0.804 g/cm/cm, T score -1.7, osteopenia (T score greater or equal to -1.0: NORMAL) (T score from -1.1 to -2.4: OSTEOPENIA) (T score less than or equal to -2.5 to: OSTEOPOROSIS) Impression: Left femoral neck osteopenia. Patients with diagnosis of osteoporosis or osteopenia should have regular bone mineral density assess ment. For those eligible for Medicare, routine testing is allowed once every 2 years. Testing frequ ency can be increased for patients who have rapidly progressing disease or for those who are receivin g medical therapy to restore bone mass. Reviewed by: Marquis Daley MD on 01/21/2022 9:43 AM PST Approved by: Marquis Daley MD on 01/21/2022 9:43 AM PST Station ID: [id number]
== END 2022-01-21 08:30 | disposition home or self-care (01) ==
LOC: DI 08:29
PROVIDERS: ATTEND Nurse Practitioner
DX: Z78.0 Asymptomatic menopausal state (principal); M85.88 Other specified disorders of bone density and structure, other site

== ENCOUNTER 2022-01-21 08:30 | Outpatient (CLI) | payer MEDICARE, MEDICAID ==
--- NOTE | 2022-01-22 10:59 | Mammography Report ---
BILATERAL DIGITAL SCREENING MAMMOGRAM 3D/2D: 01/21/2022 CLINICAL: Family history of breast cancer. Routine screening. Comparison is made to exam dated: 07/16/2020 mammogram - [facility]. Both breasts are heterogeneously dense, which may obscure small masses (category c / 51-75% glandular tissue). Bilateral breast implants are stable. No significant masses, calcifications, or other findings are seen in either breast. There has been no significant interval change. IMPRESSION: NEGATIVE There is no mammographic evidence of malignancy. A 1 year screening mammogram is recommended. Based on the Tyrer Cuzick model (a risk assessment model) the patients lifetime risk is 11.5% and he r 10 year risk is 5.6%. According to the ACR, ACS, and NCCN guidelines, an annual breast MRI exam heriberto ng with mammogram is recommended if the patients lifetime risk is 20% or greater. This exam was interpreted at Station ID: [id number]. NOTE: For mammograms, a report in lay terms will be sent to the patient. Approximately 15% of breast malignancies will not be visualized mammographically. In the management of a palpable breast mass, a negative mammogram must not discourage biopsy of a clinically suspicious lesion. Electronically Signed By: Bryson Fuentes M.D. atmoisés/joerad:01/21/2022 18:07:52 ACR BI-RADS Category 1: Negative 3341F PARENCHYMAL PATTERN: (D) - The breast(s) demonstrate(s) heterogeneously dense fibroglandular yomaira kramer. BI-RADS CATEGORY: (1) - 1 RECOMMENDATION: (ANNUAL) - Recommend routine annual screening mammography. [id number] 1 year screening LATERALITY: (B)
== END 2022-01-21 08:31 | disposition home or self-care (01) ==
LOC: DI 08:30
PROVIDERS: ATTEND Nurse Practitioner
DX: Z12.31 Encounter for screening mammogram for malignant neoplasm of breast (principal); Z80.3 Family history of malignant neoplasm of breast

== ENCOUNTER 2023-03-09 08:52 | Outpatient (CLI) | payer MEDICARE ==
--- NOTE | 2023-03-09 15:37 | Mammography Report ---
BILATERAL DIGITAL SCREENING MAMMOGRAM 3D/2D: 03/09/2023 CLINICAL: Routine screening. Family history of breast cancer. Comparison is made to exams dated: 01/21/2022 mammogram and 07/16/2020 mammogram - [facility]. There are scattered areas of fibroglandular density in both breasts (category b / 25%-50% glandular t issue). Bilateral breast implants are stable. No significant masses, calcifications, or other findings are seen in either breast. There has been no significant interval change. IMPRESSION: NEGATIVE There is no mammographic evidence of malignancy. A 1 year screening mammogram is recommended. Based on the Tyrer Cuzick model (a risk assessment model) the patients lifetime risk is 7.3% and her 10 year risk is 3.7%. According to the ACR, ACS, and NCCN guidelines, an annual breast MRI exam along with mammogram is recommended if the patients lifetime risk is 20% or greater. This exam was interpreted at Station ID: [id number]. NOTE: For mammograms, a report in lay terms will be sent to the patient. Approximately 15% of breast malignancies will not be visualized mammographically. In the management of a palpable breast mass, a negative mammogram must not discourage biopsy of a clinically suspicious lesion. Electronically Signed By: Bryson gregory/nadya:03/09/2023 12:19:51 ACR BI-RADS Category 1: Negative 3341F PARENCHYMAL PATTERN: (A) - The breast(s) demonstrate(s) scattered fibroglandular densities. BI-RADS CATEGORY: (1) - 1 Mammogram [id number] 1 year screening LATERALITY: (B)
== END 2023-03-09 08:53 | disposition home or self-care (01) ==
LOC: DI.N 08:52
PROVIDERS: ATTEND Nurse Practitioner
DX: Z12.31 Encounter for screening mammogram for malignant neoplasm of breast (principal); Z80.3 Family history of malignant neoplasm of breast; R92.323 Mammographic fibroglandular density, bilateral breasts

== ENCOUNTER 2023-04-29 | Outpatient (CLI) | payer OTHER, MEDICARE ==
--- NOTE | 2023-04-29 15:15 | XRAY Report ---
PROCEDURE: Cervical Spine 2-3V INDICATIONS: CERVICAL SPASM TECHNIQUE: 3 view(s) of the cervical spine were acquired. COMPARISON: None. FINDINGS: Bones: No fractures or dislocations to the C7-T1 level. Straightening and mild reversal of the esme l cervical lordosis. Multilevel degenerative changes of the cervical spine with facet and uncovertebr al arthropathy, disc height loss, endplate degenerative changes and spurring. This is most pronounced at C5-C6. The lateral masses of C1 appear intact on the odontoid view. No suspicious bony lesions. Soft tissues: No prevertebral soft tissue swelling. IMPRESSION: No displaced fracture or traumatic subluxation seen by radiograph. Multilevel degenerative changes of the cervical spine. Reviewed by: Farooq Michele MD on 04/29/2023 3:14 PM PST Approved by: Farooq Michele MD on 04/29/2023 3:14 PM [facility] Station ID: [id number]
== END 2023-04-29 23:59 | disposition home or self-care (01) ==
LOC: DI.N
PROVIDERS: ATTEND Family Medicine
DX: M62.838 Other muscle spasm (principal); M47.812 Spondylosis without myelopathy or radiculopathy, cervical region

== ENCOUNTER 2023-06-16 08:00 | Outpatient (CLI) | payer MEDICARE ==
[2023-06-16 21:10] LABS: ALBUMIN 4.3 g/dL (3.2-5.5); ALBUMIN/GLOBULIN RATIO 1.5 (1.0-2.2); ALKALINE PHOSPHATASE 49 IU/L (42-121); ALT ALANINE AMINOTRANSFERASE 13 IU/L (10-60); AST ASPARTATE AMINOTRANSFERASE 14 IU/L (10-42); BILIRUBIN,TOTAL 0.4 mg/dL (0.2-1.0); BUN - BLOOD UREA NITROGEN 11 mg/dL (6-20); CALCIUM 10.2 mg/dL (8.5-10.3); CARBON DIOXIDE - CO2 29 mmol/L (21-32); CHLORIDE 108 mmol/L (101-111); CHOLESTEROL 165 mg/dL; CREATININE 0.7 mg/dL (0.6-1.3); GFR - MDRD 101 (>89); GLUCOSE 97 mg/dL (74-104); HDL CHOLESTEROL 55 mg/dL; LDL CHOLESTEROL,CALCULATED 92 mg/dL; LDL/HDL RATIO 1.7 (<4.4); POTASSIUM 3.9 mmol/L (3.5-4.5); SODIUM 141 mmol/L (135-145); TOTAL PROTEIN 7.2 g/dL (6.4-8.9); TRIGLYCERIDES 91 mg/dL (48-352); VLDL CHOLESTEROL 18 mg/dL
[2023-06-16 21:14] LABS: BASOPHILS % (AUTO) 0.7 %; CREATININE,URINE 82.2 mg/dL; EOSINOPHILS # (AUTO) 0.1 10^3/uL (0.0-0.7); EOSINOPHILS % (AUTO) 1.1 %; HCT - HEMATOCRIT 38.1 % (37.0-47.0); LYMPHOCYTES # (AUTO) 1.7 10^3/uL (1.5-3.5); LYMPHOCYTES % (AUTO) 28.2 %; MEAN CORPUSCULAR HEMOGLOBIN 29.1 pg (27.0-31.0); MEAN CORPUSCULAR HGB CONC 31.5 g/dL (32.0-36.0); MEAN CORPUSCULAR VOLUME 92.5 fL (81.0-99.0); MEAN PLATELET VOLUME 11.6 fL (7.9-10.8); MICROALBUM/CREATININE RATIO,UR 91.2 ug/mg (<30.0); MICROALBUMIN,URINE 7.5 mg/dL; MONOCYTES # (AUTO) 0.5 10^3/uL (0.0-1.0); MONOCYTES % (AUTO) 7.4 %; NEUTROPHILS # (AUTO) 3.8 10^3/uL (1.5-6.6); NEUTROPHILS % (AUTO) 62.3 %; PLT - PLATELET COUNT 226 10^3/uL (130-450); RED BLOOD COUNT 4.12 10^6/uL (4.20-5.40); WHITE BLOOD COUNT 6.1 x10^3/uL (4.8-10.8)
[2023-06-16 21:22] LABS: THYROID STIMULATING HORMONE 3.05 uIU/mL (0.34-5.60)
[2023-06-16 22:04] LABS: ESTIMATED AVERAGE GLUCOSE 114 mg/dL (70-100); HEMOGLOBIN A1c% 5.6 % (4.27-6.07)
== END 2023-06-16 23:59 | disposition home or self-care (01) ==
LOC: LAB.N 08:00
PROVIDERS: ATTEND Nurse Practitioner
DX: I10 Essential (primary) hypertension (principal); E78.5 Hyperlipidemia, unspecified; E11.9 Type 2 diabetes mellitus without complications; E04.2 Nontoxic multinodular goiter; R53.83 Other fatigue
CPT/HCPCS: 36415; 80053; 80061; 82043; 82570; 83036; 83721; 84443; 85025

== ENCOUNTER 2023-06-25 06:57 | Outpatient (CLI) | payer MEDICARE ==
--- NOTE | 2023-06-25 10:24 | CT Report ---
PROCEDURE: Lung Cancer Screen INDICATIONS: SMOKER TECHNIQUE: A CT scan of the chest was performed. Intravenous contrast media was not administered. Images were re corded and evaluated at appropriate window settings. Reformats: axial MIP of the chest, coronal and s agittal. For radiation dose reduction, the following was used: automated exposure control, adjustment of mA and/or kV according to patient size. COMPARISON: CT 10/03/2020 FINDINGS: Image quality: Excellent. Prior cancer history: Unsure. Lungs and pleura: No pleural effusions. No pneumothorax. Stable solid nodules and juxtapleural nodul es, including the 3-4 mm right upper lobe nodule (series 4, image 28). The juxtapleural nodules have smooth margins, favoring intrapulmonary lymph nodes. Mediastinum: Heart size is normal. No pericardial effusion. No large vessel abnormality. No mediastin al adenopathy by size criteria. Two vessel coronary artery calcifications. Chest wall and lower neck: Thyroid is unremarkable. No axillary or supraclavicular adenopathy by size . Bones: No aggressive osseous abnormality. Upper Abdomen: Unremarkable. IMPRESSION: Lung RAD: 2 - Benign. Recommendation: Continue annual screening in 12 Months with LDCT Non-Lung Significant Findings: Coronary Arterial Calcification - Moderate or Severe. Consider cardiol ogy referral. Reviewed by: Tahir Wilson MD on 06/25/2023 10:23 AM PDT Approved by: Tahir Wilson MD on 06/25/2023 10:23 AM PDT Station ID: [id number]
== END 2023-06-25 06:58 | disposition home or self-care (01) ==
LOC: DI 06:57
PROVIDERS: ATTEND Nurse Practitioner
DX: Z12.2 Encounter for screening for malignant neoplasm of respiratory organs (principal); I25.10 Atherosclerotic heart disease of native coronary artery without angina pectoris; F17.200 Nicotine dependence, unspecified, uncomplicated